=== PATIENT | female | born 1960 | race Hispanic/Latino ===

== ENCOUNTER → 2021-01-31 | Outpatient (CLI) | payer SELFPAY | LOC: RAD 13:22 | PROVIDERS: ATTEND Internal Medicine | DX: M17.11 Unilateral primary osteoarthritis, right knee (principal); N95.0 Postmenopausal bleeding ==

== ENCOUNTER → 2022-10-02 | Outpatient (CLI) | payer BC | LOC: RAD 10:57 | PROVIDERS: ATTEND Internal Medicine | DX: M19.072 Primary osteoarthritis, left ankle and foot (principal) ==